=== PATIENT | female | born 1960 | race Caucasian/White ===

== ENCOUNTER 2018-03-05 17:33 | Emergency (ER) | payer SELFPAY ==
[~2018-03-05] VITALS: Ht 160 cm; Wt 57.0 kg
[2018-03-05 17:36] VITALS: BP 160/82; PULSE 61; RESP 16; TEMP 99; O2SAT 98
[2018-03-05] MEDS ORDERED: SUPPLEMENTS (18:09)
--- NOTE | 2018-03-05 18:48 | PD ---
HPI Chief Complaint: Bite or Sting Time Seen by Provider: 18:35 Travel History International Travel<30 days: No Contact w/Intl Traveler<30days: No Traveled to known affect area: No History of Present Illness HPI This is a 58-year-old female here reporting that she was scratched by a Hawk today while walking to her car. She sustained a scratch to the scalp. She reports pain to her scalp. No other injuries. Symptom severity is mild. No aggravating or alleviating factors. Patient has photograph of the scalp after the event which show no obvious injury. There is a small superficial nonbleeding abrasion to the scalp. PFSH Past Medical History Medical History: Denies Significant Hx Hx Anticoagulant Therapy: No Cardiovascular Problems: Yes (HTN) Diabetes: Yes Diminished Hearing: No Tetanus Vaccination: < 5 Years Influenza Vaccination: Yes ?: Not Past Surgical History Section: Yes Tonsillectomy: Yes Other Surgery: Yes (RIGHT BREAST BIOPSY) Social History Alcohol Use: No Tobacco Use: No Allergies-Medications (Allergen,Severity, Reaction): Coded Allergies: Sulfa (Sulfonamide Antibiotics) (Verified Allergy, Severe, 03/05/18) codeine (Verified Allergy, Severe, 03/05/18) Reported Meds & Prescriptions Reported Meds & Active Scripts Active Reported [Supplements] 0 Review of Systems Except as stated in HPI: all other systems reviewed are Neg General / Constitutional: No: Fever Eyes: No: Visual changes HENT: No: Headaches Cardiovascular: No: Chest Pain or Discomfort Respiratory: No: Shortness of Breath Gastrointestinal: No: Abdominal Pain Genitourinary: No: Dysuria Musculoskeletal: No: Pain Skin: No Rash Neurologic: No: Weakness Physical Exam Narrative GENERAL: Alert and well-appearing 50-year-old female. Patient pulls her head away every time I attempt to look at the scalp to identify the wound. Making visual exam quite difficult. SKIN: Warm and dry. Tiny 1 mm superficial nonbleeding abrasion to the scalp. Patient reports the entire scalp is tender. There is no active bleeding. There is no evidence of dried blood. HEAD: Normocephalic. EYES: No injection or drainage. NECK: Supple GASTROINTESTINAL: nondistended. MUSCULOSKELETAL: No cyanosis, or edema. Data Data Last Documented VS Vital Signs Date Time Temp Pulse Resp B/P (MAP) Pulse Ox O2 Delivery O2 Flow Rate FiO2 03/05/18 17:36 99.0 61 16 160/82 (108) 98 MDM Medical Decision Making Medical Screen Exam Complete: Yes Emergency Medical Condition: Yes Differential Diagnosis Abrasion from Hawk, scalp contusion, other Narrative Course 58-year-old female here with scalp pain after being attacked by a Hawk per her report. There is physically no evidence of an attack to the scalp. There is a small 1-2 mm superficial nonbleeding abrasion which could have been caused by the event. Charge nurse Ayesha spoke with [facility] patient financial services specialist dr. Vance regarding rabies postexposure prophylaxis for BIRD attacks, they confirm that rabies postexposure prophylaxis is not indicated. Diagnosis Primary Impression: Abrasion Referrals: Primary Care Physician Additional Instructions: Apply antibiotic ointment to the abrasion daily Follow-up with her primary doctor Scripts Ibuprofen (Ibuprofen) 800 Mg Tab 800 MG PO Q6HR Y for PAIN, #40 TAB 0 Refills Prov: Margarita Solorio 03/05/18 Disposition: 01 DISCHARGE HOME Condition: Stable Margarita Solorio March 05, 2018 18:48
[2018-03-05] MEDS ORDERED: IBUP1TAB7 PO (19:04)
[2018-03-05] MEDS ORDERED: IBUPROFEN 800 MG TAB PO ONE (19:15)
[2018-03-05] MEDS ORDERED: BACI500O9 TOPICAL (19:18)
== END 2018-03-05 19:23 | disposition home or self-care (01) ==
LOC: PHEFT 17:33
DX: S00.01XA Abrasion of scalp, initial encounter (principal); W61.92XA Struck by other birds, initial encounter; E11.9 Type 2 diabetes mellitus without complications; I10 Essential (primary) hypertension
CPT/HCPCS: 99282